=== PATIENT | male | born 2000 | race Caucasian/White ===

== ENCOUNTER 2023-07-31 09:07 | Emergency (ER) | payer OTHER, SELFPAY ==
[2023-07-31 09:16] VITALS: BP 120/69; PULSE 87; RESP 18; TEMP 37.1; O2SAT 99; BMI 27.3
--- NOTE | 2023-07-31 09:17 | ED_ITS ---
HPI - General Adult General Chief complaint: Extremity Pain/Injury, Lower Stated complaint: left knee injury/WORK COMP Time Seen by Provider: 07/31/23 09:15 History of Present Illness HPI narrative: 23-year-old gentleman presenting to the ER today for left knee pain. He was at work 2 days ago on Monday. He was kneeling and when he tried to stand up he felt and heard a ?pop? in his left knee. He has had pain with extending his knee since then. It is difficult for him to describe exactly where in his knee the pain is. It is a little on the front and also in the back. It feels like it is inside. No pain radiating up into his thigh. No pain down into his lower leg. He has been having pain whenever he tries to bend and straighten the knee. Also some soreness when walking. He took Tylenol yesterday evening. He tried to go back to work this morning but was having lot of pain with bending and crouching so came here to the ER. No numbness or tingling in his foot. No previous problems with his left knee or previous operations. Related Data Home Medications Medication Instructions Recorded Confirmed No Known Home Medications 07/31/23 07/31/23 Allergies Allergy/AdvReac Type Severity Reaction Status Date / Time sulfamethoxazole Allergy Mild Hives Verified 07/31/23 09:14 [From Bactrim] trimethoprim [From Bactrim] Allergy Mild Hives Verified 07/31/23 09:14 Exam Narrative: Exam Narrative: Constitutional: Appears well-developed and well-nourished. Polite. Non-toxic appearing. HENT: Head: Atraumatic. No signs of injury. Nose: No nasal discharge. Mouth/Throat: Mucous membranes are moist. Airway patent. Phonation normal. Eyes: Conjunctivae normal and EOM are normal. Pupils are equal, round, and reactive to light. Right eye exhibits no discharge. Left eye exhibits no discharge. No icterus. Neck: Normal range of motion. Neck supple. No adenopathy. No stridor. Cardiovascular: Normal rate and regular rhythm. Normal distal capillary refill Pulmonary/Chest: Effort normal. No stridor. No respiratory distress.. No retractions. Musculoskeletal: Pelvis stable. Hips nontender. Left lower extremity: Quadriceps, hamstring, femoral shaft are nontender. No swelling. No bruising. Knee: Normal inspection. No bruising. No redness or warmth. No swelling. No obvious deformity. He is tender a little bit over the medial, posterior, and lateral joint line. No palpable joint effusion. He is able to go from full extension to just beyond 90? of flexion. No popping or clicking or locking. Attempted flexion extension with the lower leg in internal rotation and then and external rotation. No definite locking of the meniscus. No ligamentous laxity appreciated of the ACL, PCL, MCL, LCL. Lower leg nontender. Calf and Achilles nontender. Tibia and fibula nontender. Ankle nontender. Foot nontender. Normal. No edema Neurological: Alert. Normal strength. No cranial nerve deficit or sensory deficit. Coordination normal. GCS eye subscore is 4. GCS verbal subscore is 5. GCS motor subscore is 6. Distally neurovascularly intact in both lower extremities. Skin: Skin is warm. No rash noted. Const: Vital Signs, click to edit/add: Vital Signs - 24 hr 07/31/23 09:16 Temperature 98.7 F Pulse Rate [Pulse Oximeter] 87 Respiratory Rate 18 Blood Pressure [[facility] Upper Arm] 120/69 Pulse Oximetry 99 Oxygen Delivery Me thod Room Air Course Vital Signs Vital signs: Initial Vital Signs Temperature 98.7 F 07/31/23 09:16 Temperature Source Temporal Artery Scan 07/31/23 09:16 Pulse Rate 87 07/31/23 09:16 Respiratory Rate 18 07/31/23 09:16 Blood Pressure 120/69 07/31/23 09:16 Blood Pressure Mean 86 07/31/23 09:16 Pulse Oximetry 99 07/31/23 09:16 Oxygen Delivery Method Room Air 07/31/23 09:16 Vital Signs Temperature 98.7 F 07/31/23 09:16 Pulse Rate 87 07/31/23 09:16 Respiratory Rate 18 07/31/23 09:16 Blood Pressure 120/69 07/31/23 09:16 Pulse Oximetry 99 07/31/23 09:16 Oxygen Delivery Method Room Air 07/31/23 09:16 Temperature 98.7 F 07/31/23 09:16 Pulse Rate 87 07/31/23 09:16 Respiratory Rate 18 07/31/23 09:16 Blood Pressure 120/69 07/31/23 09:16 Pulse Oximetry 99 07/31/23 09:16 Oxygen Delivery Method Room Air 07/31/23 09:16 Medical Decision Making MDM Narrative Medical decision making narrative: Pleasant, previously healthy 23-year-old male presenting to the ER today with left knee pain. He injured his knee when he was going from a crouching position with his knee bent to standing up. He felt his knee pop when the injury occurred 2 days ago. With no fall or any other direct trauma, likely her fracture is remote. History provided not consistent with knee dislocation or patellar dislocation. Discussed with the patient (and his mother who is with him) and we agree that x-rays are not of much clinical utility. Concern here is for possible soft tissue of the knee such as knee sprain, ligamentous injury, cartilage injury. My ligamentous exam here in the ER shows no definite laxity. Suspicion is for possible meniscus injury. We will immobilize with a knee brace. He is set up for a follow-up orthopedic appointment in [facility] tomorrow on 07/31. Work note provided to avoid be nding and twisting his knee, wear the knee brace, until cleared to return to full duty after orthopedic check Discussed precautions for return to the ER questions answered. Discharge Plan Discharge Clinical Impression: Injury of knee, left Patient Disposition: Home, Self-Care Condition: Stable Instructions: Knee Sprain (DC), Knee Immobilizer (ED) Additional Instructions: Please follow-up with the [facility] tomorrow. If you need to reschedule your appointment, call [phone] If you have worsening knee pain, numbness in your foot, swelling or discoloration of your lower leg, or any problems, come back to the ER right away. For the next couple of days, while you are walking, Please wear the knee immobilizer to keep your knee from bending or twisting. It is okay to take the immobilizer off while your resting. Use Tylenol or ibuprofen if needed for pain. Please follow-up with orthopedic clinic tomorrow for recheck. If your knee is not healing, You may need an MRI of your need to check out the cartilage and ligaments. Prescriptions: No Action No Known Home Medications Follow Up/Referrals: Dc Johnson MD [Primary Care Provider] - Stand Alone Forms: Combat Stroke Info Instructions
== END 2023-07-31 10:00 | disposition home or self-care (01) ==
PROVIDERS: Emergency Provider Emergency Medicine; PCP Family Medicine
DX: M25.562 Pain in left knee (principal)
CPT/HCPCS: 99282; 99283

== ENCOUNTER 2023-08-18 08:00 | Outpatient (CLI) | payer OTHER, SELFPAY ==
--- NOTE | 2023-08-18 08:15 | MR_ITS ---
[facility] [address] [facility] [address] Phone:?[phone] Fax:?[phone] Referring Physician Information: iNc Almeida M.D. [id number] [id number] Phone:?[phone] Fax:?[phone] Patient:Crispin Franklin D.O.B:?2000 Sex:?Male Phone:? [facility] MRN:?[id number] Exam Date:?08/18/2023 EXAM: MRI of the LEFT KNEE, without contrast CLINICAL: Male, 23 years old, with unspecified left knee pain. INDICATION: Evaluate for internal derangement etiology. PRIOR SURGERY: None reported. PLAIN FILMS: 08/01/2023 radiographic series of the left knee. COMPARISONS: No prior MRIs available. TECHNICAL: Using a 1.5 Edith MR scanner and a localizing surface coil: 3.0 mm?sagittals: PD, PDFS 3.0 mm?coronals: PD, STIR 3.0 mm?axials: PD, T2FS SEDATION: None. CONTRAST: None. IMPRESSION: 1. Soft tissue edema of superolateral infrapatellar Hoffa's fat-pad inferior to the lateral patella in keeping with fat pad impingement and/or patellar tendon- lateral femoral condyle friction syndrome, often associated with patella cristal and/or patella maltracking. Correlate as to whether symptoms are referable to this finding and location. 2. Patellofemoral morphology: - Moderate patella cristal with decreased patellotrochlear overlap. - No convincing pathologic trochlear dysplasia. - Normal TT-TG distance. - Borderline low trochlear inclination angle. 3. Appearance of residua of nondisplaced approximately 1 cm oblique horizontal tear of inferior peripheral rim of the medial meniscus posterior horn without larger tear or displacement. 3. No lateral meniscus tear. 4. No cruciate or collateral ligament injuries. 5. No chondral abnormalities. FINDINGS: Knee joint: Effusion: Physiologic. Popliteal cyst: None. Loose bodies: None. Subcutaneous and extra-articular soft tissues: Unremarkable. Ligaments: ACL: Intact and normal. PCL: Intact and normal. MCL: Intact and normal. FCL: Intact and normal. Posterolateral corner: Intact popliteus, biceps femoris, iliotibial band, popliteofibular ligament and lateral gastrocnemius. Posteromedial corner: Intact pes anserinus and posterior oblique ligament. Extensor mechanism: Patellar tendon: Intact and normal. Quadriceps tendon: Intact and normal. Retinacula: Intact and normal. Fat pads: Infrapatellar: Moderate ill-defined edema of superolateral infrapatellar Hoffa's fat-pad inferior to the lateral patella is a finding which can represent fat pad impingement and/or patellar tendon-lateral femoral condyle friction syndrome, most commonly associated with patella cristal and/or patella maltracking (sagittal PDFS series 6, images 18-23; axial PDFS series 4, images 13-16; coronal T2FS series 8, image 7). Prefemoral: Mild edema of the lateral toward central aspect of the prefemoral fat pad (axial PDFS series 4, images 4-9; sagittal PDFS series 7, 23-18). Quadriceps: Normal. Insall-Salvati index (PARVIN): 1.34 (normal 1.0 +/- 0.2; abnormal > 1.2). Jerald-Maggie index (CDI): 1.28 (normal 1.0 +/- 0.2: abnormal > 1.2). Patellotrochlear index (PTI): 0.11 (range 0.18 - 0.80). Wiberg patellar type: II TT-TG distance (mm): 10 (normal < 15, borderline abnormal 15-20, Abnormal > 20). Trochlear sulcus angle: 140? (normal <= 144?) Trochlear inclination angle: 11? (normal >= 11?) Medial compartment: Medial meniscus: There appears residua of small approximately 1 cm oblique horizontal tear of the inferior peripheral rim of the medial meniscus posterior horn without larger tear or displacement (sagittal images 14-10). No fragment displacement. No parameniscal cyst. No posterior root disruption or peripheral meniscal extrusion. Medial femoral condyle: No demonstrable chondromalacia. Medial tibial plateau: No demonstrable chondromalacia. Lateral compartment: Lateral meniscus: Intact and normal. Lateral femoral condyle: No demonstrable chondromalacia. Lateral tibial plateau: No demonstrable chondromalacia. Patellofemoral joint: Patella: No demonstrable chondromalacia. Trochlea: No demonstrable chondromalacia. Proximal tibiofibular joint: Unremarkable. Bones: No other edema or fractures. Neurovascular: Popliteal artery/vein: Normal. Anterior tibial artery: No aberrant variant. Tibial nerve: Normal. Popliteal nerve: Normal. Common peroneal nerve: Normal. [facility] Electronically signed on 08/19/2023 9:00:00 PM by Herminio Cross M.D.
== END 2023-08-18 08:01 | disposition home or self-care (01) ==
LOC: MRI 08:01
PROVIDERS: PCP Family Medicine; Visit Provider Orthopaedic Surgery Sports Medicine
DX: M25.562 Pain in left knee (principal); M23.92 Unspecified internal derangement of left knee; S89.92XA Unspecified injury of left lower leg, initial encounter; Z02.6 Encounter for examination for insurance purposes
CPT/HCPCS: 73721